=== PATIENT | male | born 1955 | race Caucasian/White ===

== ENCOUNTER → 2022-02-01 | Outpatient (CLI) | payer OTHER | LOC: KOH-I 12:28 | DX: J98.9 Respiratory disorder, unspecified (principal); J30.89 Other allergic rhinitis; H10.45 Other chronic allergic conjunctivitis; E66.01 Morbid (severe) obesity due to excess calories; J30.1 Allergic rhinitis due to pollen; R94.2 Abnormal results of pulmonary function studies | CPT/HCPCS: 71046 ==